=== PATIENT | male | born 2000 | race Hispanic/Latino ===

== ENCOUNTER 2023-12-22 23:55 | Emergency (ER) | payer BC ==
[~2023-12-22] VITALS: Ht 182.9 cm; Wt 127.0 kg
[2023-12-23] MEDS: IBUPROFEN 800 MG TAB PO ONE (00:15)
[2023-12-23 00:45] LABS: SARS-CoV-2, RNA, NAAT NEGATIVE SARS CoV-2 (NEGATIVE)
[2023-12-23 00:46] LABS: INFLUENZA TYPE A Negative For Type A (NEGATIVE); INFLUENZA TYPE B Negative For Type B (NEGATIVE)
[2023-12-23 00:47] LABS: APPEARANCE,URINE CLEAR (CLEAR); BILIRUBIN,URINE NEGATIVE (NEGATIVE); COLOR,URINE YELLOW (YELLOW); GLUCOSE, URINE (UA) NEGATIVE (NEGATIVE); KETONES,URINE 5 mg/dL (NEGATIVE); LEUKOCYTE ESTERASE ,URINE NEGATIVE Leu/uL (NEGATIVE); NITRATE,URINE NEGATIVE (NEGATIVE); OCCULT BLOOD,URINE NEGATIVE (NEGATIVE); PH,URINE 5.5 (5.0-8.0); PROTEIN,URINE 30 mg/dL (NEGATIVE); UROBILINOGEN,URINE 0.2 mg/dL (0.2-1.0)
[2023-12-23 00:49] LABS: ADD UA MICROSCOPIC YES
[2023-12-23 00:50] LABS: MUCUS,URINE RARE LPF (None Seen); SQUAMOUS EPITHELIAL CELL,UR RARE /HPF (0-2)
[2023-12-23] MEDS ORDERED: IBUP-2077 PO (00:50)
[2023-12-23] MEDS ORDERED: AMOX1TAB16 PO (00:50)
[2023-12-23 00:52] VITALS: TEMP 99.8
[2023-12-23 01:06] VITALS: BP 134/84; PULSE 98; RESP 18; O2SAT 99
== END 2023-12-23 01:07 | disposition home or self-care (01) ==
LOC: EDH 23:55
DX: J03.90 Acute tonsillitis, unspecified (principal); R50.9 Fever, unspecified; Z20.822 Contact with and (suspected) exposure to COVID-19
CPT/HCPCS: 81001; 87635; 87804

== ENCOUNTER 2024-12-29 07:49 | Emergency (ER) | payer BC ==
[~2024-12-29] VITALS: Ht 182.9 cm; Wt 127.0 kg
[~2024-12-29 07:49] MED LIST: AMOX1TAB16 PO; IBUP-2077 PO
[2024-12-29] MEDS: teTANUS/diphthERIA TOXOID [ADULT] 0.5 ML VIAL IM ONE (08:28)
[2024-12-29 09:03] VITALS: BP 127/52; PULSE 78; RESP 16; TEMP 98.7; O2SAT 99
--- NOTE | 2024-12-29 09:13 | HMCIMG ---
TIBIA/FIBULA 2VWS RT HISTORY: Injury COMPARISON: None TECHNIQUE: 2 images of the right tibia and fibula were obtained. FINDINGS: There is no acute displaced fracture or dislocation. IMPRESSION: 1. Findings as described above.
[2024-12-29] MEDS ORDERED: CLIN-141 PO (09:16)
--- NOTE | 2024-12-29 09:16 | ERN ---
ED Note History of Present Illness Stated Complaint: RT ANKLE Chief Complaint: Ankle Problem Time Seen by MD: 08:00 Dictation: 24-year-old male no past medical history is a abrasion to the right leg area lower, states that he was injured with machinery at work on Tuesday which was three days ago. Abrasion and contusion mild pain only with weight-bearing 10 relieved with rest. Allergies: Coded Allergies: cetirizine (Unverified Allergy, Unknown, 12/23/23) Home Meds Active Scripts Ibuprofen (Ibuprofen 800 mg Tab) 800 Mg Tab, 800 MG PO Q6H PRN for PAIN, #30 TAB Prov:JUAN MANUEL HILARIO [employer] 12/23/23 Amoxicillin/Potassium Clav (Amox Tr-K Clv 875-125 mg Tab) 875 Mg-125 Mg Tablet, 1 EACH PO BID for 10 Days, #20 TAB 0 Refills Prov:JUAN MANUEL HILARIO [employer] 12/23/23 Past Medical History Past Medical History: No Pertinent History Surgical History: None Review of System Dictation Constitutional: Negative for fever,chills, and weight loss Eyes: Negative for injury, pain,redness, and discharge ENT: Negative for injury,pain or swelling Cardiovascular: Negative for chest pain, palpitations, and edema Respiratory: Negative for shortness of breath, cough, and wheezing, Abdomen/GI: Negative for abdominal pain, nausea, vomiting, diarrhea, and constipation Back: Negative for injury and pain : Negative for injury, bleeding and discharge MS/Extremity: Per HPI Neuro: Negative for headache, weakness, numbness, tingling, and seizure Psych: Negative for suicide ideation, homicidal ideation, and hallucinations Initial Vital Sign VS Vital Signs Date Time Temp Pulse Resp B/P (MAP) Pulse Ox O2 Delivery O2 Flow Rate FiO2 12/29/24 07:55 98.2 72 18 123/68 99 0 12/29/24 08:00 Room Air* 21 Physical Exam Dictation General: awake, alert, NAD Head/Face: Normocephalic, atraumatic Eyes: PERRL, EOMI, vision at baseline ENT: oral cavity clear, TMs clear, no signs of infection Neck: Trachea midline, supple, no nuchal rigidity Cardiovascular: RRR, normal S1/S2, No MRGs, no JVD Respiratory: CTAB, no respiratory distress, No rales or wheezes Abdomen: Soft, non-tender, non-distended, normal bowel sounds, no guarding or rebound. Skin: Warm, dry, normal turgor, superficial abrasion to the right tib-fib area laterally MS/Extremity: Pulses equal, no cyanosis, neurovascular intact, FROM Neuro: COAx4, GCS 15, strength 5/5, CN 2-12 intact, normal cerebellar exam, normal gait, Psych: Normal behavior, mood, and affect normal ED Course ED Course Orders Procedure Category Date Status Time Tibia/Fibula 2vws Rt RAD 12/29/24 Taken 08:13 Ankle 2vws Rt RAD 12/29/24 Taken 08:13 Tetanus,Diphtheria PHA 12/29/24 Complete Tox [Adult] (Diphther 08:30 Current Medications Medications (Trade) Dose Ordered Sig/[place] Route PRN Reason Start Time Stop Time Status Last Admin Dose Admin Tetanus/ Diphtheria Toxoids Adsorbed (DiphthERIA-teTANUS TOXOID [ADULT]/ DECAVAC) 0.5 ml ONCE ONCE IM 12/29/24 08:30 12/29/24 08:31 DC 12/29/24 08:28 Vital Signs Date Time Temp Pulse Resp B/P (MAP) Pulse Ox O2 Delivery O2 Flow Rate FiO2 12/29/24 09:03 98.8 78 16 127/52 99 Room Air* 0 21 12/29/24 08:00 98.2 72 18 123/68 99 Room Air* 0 21 12/29/24 07:55 98.2 72 18 123/68 99 0 Medical Decision Making MDM MDM: Differential diagnosis: Rationale: Tests considered and ordered secondary to shared decision making include: Previous outside records reviewed: Old ER visits. Risk of complication and/or morbidity or mortality of patient management: None Medications-Per medication reconciliation Need for hospitalization: Patient does not meet criteria for hospitalization. Need for emergency major/minor surgery: No There are no social concerns with this patient. Prescription drug management Prescriptions will include symptomatic care Patient's prior external medical records from other ER visits were reviewed by me as indicated. Prior testing and results from previous visits were reviewed. Prior tests were taken into account with medical decision making and resource utilization, independent historian/historians were used to obtain complete medical history. I independently interpreted the test that were performed, results were reviewed by me and considered findings on radiology if ordered. Medical management and examination interpretation discussions were had by me with other qualified healthcare professionals as indicated for the patient's care. 24-year-old male crush injury and superficial abrasion, tetanus updated, x-ray no acute fracture compartment self neurovascularly intact distally, stable for discharge DX & DISP Disposition: Discharge Departure Impression: Primary Impression: Abrasion, right lower leg, initial encounter Condition: Stable Scripts Clindamycin HCl (Clindamycin HCl) 300 Mg Capsule 1 CAP PO TID for 10 Days, #30 CAP 0 Refills Prov: ATIYA PARISI MD 12/29/24 Referrals: ROSI ROSADO (PCP) ATIYA PARISI MD Dec 29, 2024 09:16
--- NOTE | 2024-12-29 09:17 | HMCIMG ---
ANKLE 2VWS RT HISTORY: Injury COMPARISON: None TECHNIQUE: 2 images of the left ankle were obtained. FINDINGS: There is no acute displaced fracture or dislocation. There is os trigonum. IMPRESSION: 1. Findings as described above.
== END 2024-12-29 09:34 | disposition home or self-care (01) ==
LOC: EDH 07:49
DX: S80.811A Abrasion, right lower leg, initial encounter (principal); Z79.899 Other long term (current) drug therapy; Z88.8 Allergy status to other drugs, medicaments and biological substances; X58.XXXA Exposure to other specified factors, initial encounter; Y93.89 Activity, other specified; Y92.89 Other specified places as the place of occurrence of the external cause; Y99.0 Civilian activity done for income or pay
CPT/HCPCS: 73590; 73600; 90471; 90714; 99284